=== PATIENT | male | born 1985 | race Caucasian/White ===

== ENCOUNTER 2017-09-02 02:58 | Emergency (ER) | payer MEDICARE, OTHER ==
[2017-09-02 02:59] VITALS: BMI 30.2
[2017-09-02 03:05] VITALS: BP 140/73; PULSE 89; RESP 17; TEMP 98.3; O2SAT 98
--- NOTE | 2017-09-02 03:19 | ED PDOC ---
HPI: Psych/Substance Abuse Time Seen by Provider: 09/02/17 03:08 Chief Complaint (Nursing): Psychiatric Evaluation Chief Complaint (Provider): crisis eval History Per: EMS Additional Complaint(s): 32 y/o male history of bipolar, schizophrenia brought in by EMS for crisis evaluation. As per EMS, parents called stating that patient has been noncompliant with psych medication and has not slept in 4 days. Patient with flight of ideas but redirectable. Denies suicidal/homicidal ideations. Past Medical History Reviewed: Historical Data, Nursing Documentation, Vital Signs Vital Signs: Last Vital Signs Temp 98.3 F 09/02/17 03:01 Pulse 89 09/02/17 03:01 Resp 17 09/02/17 03:01 BP 140/73 09/02/17 03:01 Pulse Ox 98 09/02/17 03:01 - Medical History PMH: Anxiety, Bipolar Disorder, Paranoia, Schizophrenia Denies: Diabetes, Hepatitis, HIV, HTN, Seizures, Sexually Transmitted Disease - Family History Family History: States: Unknown Family Hx - Immunization History Hx Tetanus Toxoid Vaccination: No (UNSURE) Hx Influenza Vaccination: No Hx Pneumococcal Vaccination: No - Home Medications Home Medications: Ambulatory Orders Medication Instructions Recorded clonazePAM [Klonopin] 1 mg PO BID #0 tab 02/02/14 risperiDONE [RisperDAL Tab] 1 mg PO DAILY #30 tab 02/02/14 traZODone [Desyrel] 50 mg PO HS #0 tab 02/02/14 Ambien 5 mg PO HS 03/15/14 Klonopin 03/15/14 - Allergies Allergies/Adverse Reactions: Allergies Allergy/AdvReac Type Severity Reaction Status Date / Time No Known Allergies Allergy Verified 05/01/14 17:25 Review of Systems ROS Statement: Except As Marked, All Systems Reviewed And Found Negative Psych: Positive for: Psychosis Physical Exam - Reviewed Nursing Documentation Reviewed: Yes Vital Signs Reviewed: Yes - Physical Exam Appears: Positive for: Well, Non-toxic, In Acute Distress (rambling, flight of ideas) Head Exam: Positive for: ATRAUMATIC, NORMAL INSPECTION, NORMOCEPHALIC Skin: Positive for: Normal Color Eye Exam: Positive for: Normal appearance ENT: Positive for: Normal ENT Inspection Cardiovascular/Chest: Positive for: Regular Rate, Rhythm Respiratory: Positive for: Normal Breath Sounds Gastrointestinal/Abdominal: Positive for: Normal Exam Back: Positive for: Normal Inspection Extremity: Positive for: Normal ROM Neurologic/Psych: Positive for: Alert, Oriented - Laboratory Results Result Diagrams: 09/02/17 03:38 09/02/17 03:38 - ECG O2 Sat by Pulse Oximetry: 98 - Progress ED Course And Treament: labs, urine, crisis eval Patient with elevated LFTs, states he drinks "almost daily". Advised to follow up PMD. Patient was evaluated by quill worker and cleared for discharge as per Dr. Espinosa. Disposition - Clinical Impression Clinical Impression: Schizophrenia, Elevated liver function tests - Patient ED Disposition Is Patient to be Admitted: No Counseled Patient/Family Regarding: Studies Performed, Diagnosis, Need For Followup - Disposition Disposition: Routine/Home Disposition Time: 04:52 Condition: STABLE Additional Instructions: Follow up with your primary doctor in 2-3 days. Follow up with your psychiatrist in 2-3 days. Return to ED for worsening/concerning symptoms. Instructions: Schizophrenia (DC)
[2017-09-02 03:48] LABS: BASO # 0.1 K/uL (0.0-0.2); EOS # 0.6 K/uL (0.0-0.7); EOS % 6.6 % (0.0-4.0); HEMOGLOBIN 12.8 g/dL (12.0-18.0); LYMPH # 2.6 K/uL (1.0-4.3); LYMPH % 30.5 % (20.0-40.0); MEAN CELL VOLUME 88.4 fl (80.0-94.0); MEAN CORPUSCULAR HEMOGLOBIN 29.4 pg (27.0-31.0); MEAN CORPUSCULAR HGB CONC 33.3 g/dL (33.0-37.0); MEAN PLATELET VOLUME 9.2 fl (7.2-11.7); MONO # 0.8 K/uL (0.0-0.8); MONO % 9.3 % (0.0-10.0); NEUT # 4.4 K/uL (1.8-7.0); NEUT % 52.6 % (50.0-75.0); NRBC % 0.2 % (0.0-0.0); RBC 4.37 Mil/uL (4.40-5.90); RED CELL DISTRIBUTION WIDTH 12.4 % (11.5-14.5); WHITE BLOOD COUNT 8.4 K/uL (4.8-10.8)
[2017-09-02 03:57] LABS: ALB/GLOB RATIO 1.1 (1.0-2.1); ALBUMIN 3.8 g/dL (3.5-5.0); ALT/SGPT 205 U/L (21-72); AST/SGOT 296 U/L (17-59); BLOOD UREA NITROGEN 13 mg/dl (9-20); CALCIUM 9.2 mg/dL (8.4-10.2); GFR AFRICAN-AMERICAN > 60; GFR NON-AFRICAN AMERICAN > 60
[2017-09-02 03:59] LABS: URINE BILIRUBIN NEGATIVE (NEGATIVE); URINE BLOOD NEGATIVE (NEGATIVE); URINE CLARITY CLEAR (Clear); URINE COLOR YELLOW (YELLOW); URINE GLUCOSE (UA) NEG (Normal); URINE LEUKOCYTE ESTERASE NEG Leu/uL (Negative); URINE PROTEIN NEGATIVE (NEGATIVE); URINE UROBILINOGEN 0.2-1.0 mg/dL (0.2-1.0)
[2017-09-02 04:07] LABS: BARBITURATES, UR NEGATIVE (NEGATIVE); BENZODIAZEPINES, UR NEGATIVE (NEGATIVE); OPIATES, UR NEGATIVE (NEGATIVE); PHENCYCLIDINE, UR NEGATIVE (NEGATIVE)
[2017-09-02 04:40] LABS: ACETAMINOPHEN < 10.0 ug/ml (10.0-30.0); SALICYLATE < 1.0 mg/dL 1
== END 2017-09-02 05:02 | disposition home or self-care (01) ==
LOC: H.ER 02:58
DX: F20.9 Schizophrenia, unspecified (principal); R94.5 Abnormal results of liver function studies; F31.9 Bipolar disorder, unspecified; F41.9 Anxiety disorder, unspecified; Z91.19 Patient's noncompliance with other medical treatment and regimen
CPT/HCPCS: 80053; 81003; 82948; 85025; 99283; G0480

== ENCOUNTER 2017-09-04 03:18 | Inpatient (IN) | payer MEDICARE, MEDICAID ==
[2017-09-04 03:25] VITALS: BMI 33.4
[2017-09-04 04:38] LABS: BASO # 0.1 K/uL (0.0-0.2); BASO % 1.2 % (0.0-2.0); EOS # 0.4 K/uL (0.0-0.7); EOS % 5.1 % (0.0-4.0); LYMPH # 2.2 K/uL (1.0-4.3); MEAN CORPUSCULAR HEMOGLOBIN 29.4 pg (27.0-31.0); MEAN CORPUSCULAR HGB CONC 33.4 g/dL (33.0-37.0); MONO # 0.7 K/uL (0.0-0.8); MONO % 8.9 % (0.0-10.0); NEUT # 4.4 K/uL (1.8-7.0); NEUT % 56.8 % (50.0-75.0); RBC 4.44 Mil/uL (4.40-5.90); RED CELL DISTRIBUTION WIDTH 12.7 % (11.5-14.5); WHITE BLOOD COUNT 7.8 K/uL (4.8-10.8)
[2017-09-04 04:48] LABS: ACETAMINOPHEN < 10.0 ug/ml (10.0-30.0); SALICYLATE < 1.0 mg/dl
[2017-09-04 04:49] LABS: BLOOD UREA NITROGEN 13 mg/dl (9-20); CALCIUM 8.7 mg/dL (8.4-10.2); GFR AFRICAN-AMERICAN > 60; GFR NON-AFRICAN AMERICAN > 60; URINE BILIRUBIN NEGATIVE (NEGATIVE); URINE BLOOD NEGATIVE (NEGATIVE); URINE CLARITY CLEAR (Clear); URINE COLOR YELLOW (YELLOW); URINE GLUCOSE (UA) NEG (Normal); URINE LEUKOCYTE ESTERASE NEG Leu/uL (Negative); URINE PROTEIN NEGATIVE (NEGATIVE); URINE UROBILINOGEN 0.2-1.0 mg/dL (0.2-1.0)
--- NOTE | 2017-09-04 04:58 | ED PDOC ---
HPI: Psych/Substance Abuse Time Seen by Provider: 09/04/17 03:26 Chief Complaint (Nursing): Psychiatric Evaluation Chief Complaint (Provider): psychiatric evaluation ED Caveat: Other (mental illness ) History Per: Patient History/Exam Limitations: other (poor hisotrian) Onset/Duration Of Symptoms: Days (09/04/17) Current Symptoms Are (Timing): Still Present Associated Symptoms: denies: Suicidal Thoughts, Suicidal Plan Additional History Per: Family Additional Complaint(s): 32 year old male was brought in by EMS to the ED for psychiatric evaluation. Family called 911 because patient was behaving erratically. Patient has a flight of ideas and is a poor historian. States he occasionally feels homicidal. Denies suicidal ideation. PMD: Provider TBD Past Medical History Reviewed: Historical Data, Nursing Documentation, Vital Signs Vital Signs: Last Vital Signs Temp 98.2 F 09/04/17 03:25 Pulse 121 H 09/04/17 03:25 Resp 18 09/04/17 03:25 BP 139/96 H 09/04/17 03:25 Pulse Ox 98 09/04/17 03:25 - Medical History PMH: Anxiety, Bipolar Disorder, Paranoia, Schizophrenia Denies: Diabetes, Hepatitis, HIV, HTN, Seizures, Sexually Transmitted Disease - Family History Family History: States: Unknown Family Hx - Immunization History Hx Tetanus Toxoid Vaccination: No (UNSURE) Hx Influenza Vaccination: No Hx Pneumococcal Vaccination: No - Home Medications Home Medications: Ambulatory Orders Medication Instructions Recorded Benztropine [Cogentin] 1 mg PO BID 09/04/17 [place] Carbonate [[place] 300 mg PO BID 09/04/17 Carbonate 300MG] Lurasidone HCl [Latuda] 80 mg PO DAILY 09/04/17 Quetiapine Fumarate [Seroquel] 100 mg PO HS 09/04/17 clonazePAM [Klonopin] 1 mg PO QID 09/04/17 - Allergies Allergies/Adverse Reactions: Allergies Allergy/AdvReac Type Severity Reaction Status Date / Time No Known Allergies Allergy Verified 09/04/17 03:25 Review of Systems ROS Statement: Except As Marked, All Systems Reviewed And Found Negative Psych: Positive for: Other (occasionally feels homicidal). Negative for: Suicidal ideation Physical Exam - Reviewed Nursing Documentation Reviewed: Yes Vital Signs Reviewed: Yes - Physical Exam Appears: Positive for: Well, Non-toxic, No Acute Distress Head Exam: Positive for: ATRAUMATIC, NORMAL INSPECTION, NORMOCEPHALIC Skin: Positive for: Normal Color, Warm, Dry Eye Exam: Positive for: EOMI, Normal appearance, PERRL ENT: Positive for: Normal ENT Inspection Neck: Positive for: Normal, Painless ROM, Supple. Negative for: Decreased ROM, Limited ROM Cardiovascular/Chest: Positive for: Regular Rate, Rhythm. Negative for: Murmur Respiratory: Positive for: Normal Breath Sounds. Negative for: Decreased Breath Sounds, Accessory Muscle Use, Respiratory Distress Gastrointestinal/Abdominal: Positive for: Normal Exam, Bowel Sounds, Soft. Negative for: Tenderness, Guarding, Rebound Extremity: Positive for: Normal ROM. Negative for: Tenderness, Pedal Edema, Deformity Neurologic/Psych: Positive for: Alert, Oriented (x3), Other (rambling and has flight of ideas ) - Laboratory Results Result Diagrams: 09/04/17 04:33 09/04/17 04:33 - ECG O2 Sat by Pulse Oximetry: 98 (RA) Pulse Ox Interpretation: Normal Medical Decision Making Medical Decision Making: Time: 03:31 A/P: Decompensated with schizoaffective disorder. Meeting for admission with Dr. Valenzuela. --Acetaminophen --Alcohol serum --BMP --Drug screen --Salicylate --Crisis evaluation --CBC w/ differentials --1:1 Observations --Urinalysis --Reevaluation 0600 Patient is medically cleared for psychiatric admission. Scribe Attestation: Documented by Luis Miguel Palomo, acting as a scribe for Naun Boyle MD Provider Scribe Attestation: All medical record entries made by the Scribe were at my direction and personally dictated by me. I have reviewed the chart and agree that the record accurately reflects my personal performance of the history, physical exam, medical decision making, and the department course for this patient. I have also personally directed, reviewed, and agree with the discharge instructions and disposition. Disposition - Clinical Impression Clinical Impression: Schizoaffective disorder - Patient ED Disposition Is Patient to be Admitted: Yes - Disposition Disposition Time: 05:00 Condition: FAIR
[2017-09-04 05:03] LABS: BARBITURATES, UR NEGATIVE (NEGATIVE); BENZODIAZEPINES, UR NEGATIVE (NEGATIVE); OPIATES, UR NEGATIVE (NEGATIVE); PHENCYCLIDINE, UR NEGATIVE (NEGATIVE)
[2017-09-04 06:33] VITALS: O2SAT 98
[2017-09-04] MEDS ORDERED: Magnesium Hydroxide Susp 30 ml UD PO PRN (09:18)
[2017-09-04] MEDS ORDERED: DiphenhydrAMINE 50 mg/ml Inj IM PRN (09:18)
--- NOTE | 2017-09-04 10:11 | PCM.PSYCH ---
Initial Psychiatric Evaluation - Initial Psychiatric Evaluation Type of Admission: Voluntary Legal Status: Capacity Chief Complaint (in patient's own words): I DO NOT TAKE MEDICATIONS Patient's Reaction to Hospitalization: PT REQUESTING TO LEAVE History of Present Illness and Precipitating Events: pt is 32 ys old male with previous psychiatric diagnosis of schizoaffective disorder, pt was non compliant with medications or follow up, as per pt he also started to use cannabis to calm himself down, pt was noted by parents to gradually decompensate, became increasingly disorganized and paranoid, pacing all night, irritable angry, internally preoccupied and responding to internal stimuli, pt was also threaening to neighbours on the unit pt is irritable angry requesting to leave, refusing medications, internally preoccupied and observed responding to internal stimuli pt signed 48 hours notice requesting to be discharged collateral information from mother Giselle Tse parents, , stated pt is not compliant with meds and has been talking to himself and stating random tings to them. They stated pt continues to wander outside at night and feels he needs psych admission at this time. They stated pt does see Dr. Dobbs but stated he does not follow meds. Current Medications: Active Medications Generic Name Dose Route Start Last Admin Trade Name Freq PRN Reason Stop Dose Admin Acetaminophen 650 mg 09/04/17 09:19 Tylenol 325mg Tab PO Q4 PRN Pain, moderate (4-7) Diphenhydramine HCl 50 mg 09/04/17 09:18 Benadryl IM Q6 PRN Extrapyramidal S/S Unable PO Diphenhydramine HCl 50 mg 09/04/17 09:18 09/04/17 09:49 Benadryl PO 50 mg Q6 PRN Administration Extrapyramidal Symptoms Haloperidol 5 mg 09/04/17 09:18 09/04/17 09:49 Haldol PO 5 mg Q4 PRN Administration Agitation Haloperidol Lactate 5 mg 09/04/17 09:18 Haldol IM Q4 PRN Agitation, Unable to Take PO Lorazepam 2 mg 09/04/17 09:18 Ativan IM Q4 PRN Anxiety/Agitation,Unable PO Lorazepam 2 mg 09/04/17 09:18 09/04/17 09:49 Ativan PO 2 mg Q4 PRN Administration Anxiety/Agitation Magnesium Hydroxide 30 ml 09/04/17 09:18 Milk Of Magnesia PO HS PRN Constipation Past Psychiatric History - Past Psychiatric History Explanation of prior treatment: multiple inpatient hospitalizations, hx of non compliance, pt mentioned being in long term five years ago but would not elaborate on the reason History of ETOH/Drug Use: history of cannabis use Pertinent Medical Hx (Current Medical&Sleep Prob, Allergies): Allergies Allergy/AdvReac Type Severity Reaction Status Date / Time No Known Allergies Allergy Verified 09/04/17 03:25 Benztropine [Cogentin] 1 mg PO BID 09/04/17 [place] Carbonate [[place] Carbonate 300MG] 300 mg PO BID 09/04/17 Lurasidone HCl [Latuda] 80 mg PO DAILY 09/04/17 Quetiapine Fumarate [Seroquel] 100 mg PO HS 09/04/17 clonazePAM [Klonopin] 1 mg PO QID 09/04/17 Mental Status Examination - Personal Presentation Personal Presentation: Looks older than stated age Additional comments: uncooperative, guarded irritable - Affect Affect: Constricted - Motor Activity Motor Activity: Psychomotor Agitation - Reliability in Providing Information Reliability in Providing Information: Poor, due to alteration in thoughts, Poor , due to altered mood - Speech Speech: Disorganized - Mood Mood: Anxious - Formal Thought Process Formal Thought Process: Hallucinations, Delusions, Paranoia, Loosening of associations, Circumstantial Additional comments: pt appears responding to internal stimuli - Obsessions/Compulsions Obsessions: No Compulsions: No - Cognitive Functions Orientation: Person, Place Attention/Concentration: Easily distracted Judgement: Imparied, as evidence by: Poor judgement, Imparied, as evidence by: Lack of insight into illness - Strength & Assets Inventory Strength & Assets Inventory: Family support - Limitations Additional comments: poor compliance DSM 5 DX - DSM 5 DSM 5 Diagnosis: schizoaffective disorder bipolar - Recommended/Plan of Treatment Treatment Recommendations and Plan of Treatment: risperidone 2mg bid depakote 500mg bid pt at current mental status irritable paranoid disorganized psychotic refusing medications requesting to leave signed 48hiours notice will refer pt for screening for involuntary admission as pt require continuation of treatment for stabilization
[2017-09-04 10:57] LABS: HDL CHOLESTEROL 38 MG/DL (30-70)
[2017-09-04] MEDS ORDERED: Divalproex 500 mg DR(BID formulation) PO STA (11:01)
[2017-09-04] MEDS ORDERED: Risperidone M TAB 2 MG PO STA (11:03)
[2017-09-04 11:08] LABS: LDL CHOLESTEROL 70 mg/dL (0-129)
--- NOTE | 2017-09-04 11:51 | PCM.BM ---
<Tha Fernandes M - Last Filed: 09/04/17 11:53> Treatment Plan Problems - Problems identified on initial assessmt delusions Date Initiated: 09/04/17 Time Initiated: 11:50 Assessment reference: NA Status: Active Priority: 1 Thought Process Date Initiated: 09/04/17 Time Initiated: 11:54 Assessment reference: NA Status: Active Priority: 2 Treatment assets and liabiliti Patient Assests: self-reliant, ADL independent, physically healthy, good support system Patient Liabilities: financial problems, imparied memory, other - Milieu Protocol Maintain good personal hygiene: daily Encourage regular showers, daily Remind patient to perform daily oral care, daily Assist patient to perform ADL's Conduct patient checks and document Observation sheet: Q15 minutes Maintain personal safety: every shift Educate patient to report safety concerns to staff, every shift Monitor environment for contraband/sharps Medication safety: Monitor for expected outcome, potential side effects: daily, Assess barriers to learning: daily, Assess readiness for medication education: daily Milieu Narrative: risperidone 2mg bid depakote 500mg bid pt at current mental status irritable paranoid disorganized psychotic refusing medications requesting to leave signed 48hiours notice will refer pt for screening for involuntary admission as pt require continuation of treatment for stabilization Discharge/Continuing Care - Treatment Team Participation Patient/Family/SO Statement: risperidone 2mg bid depakote 500mg bid pt at current mental status irritable paranoid disorganized psychotic refusing medications requesting to leave signed 48hiours notice will refer pt for screening for involuntary admission as pt require continuation of treatment for stabilization <Dylon Woo J - Last Filed: 09/06/17 13:31> Family Contact Family involvement: Family/SO is involved Family contact: Patient agrees to contact, Family has been contacted by patient , Telephone contact initiated by staff Family contact name: Jerry Fowler (Mother) Family contacted how many times per week?: 3 Family contact comment: Maintenance Worker [employer] attempted to contact pt's mother, Jerry Alejo ([phone]), for collateral and to update her on pt's condition. Phone rang for over two minutes and no answering machine initiated. Maintenance Worker [employer] will endorse to LORIE Ayoub to attempt again on 09/07. - Goals for Treatment Patient goals for treatment: Pt is too disorganized to formulate goals. Pt is agreeable to stay for further stabilization, but believes he is already stable enough to return home. Discharge/Continuing Care - Education Needs Education Needs: Patient Medication, Patient Diagnosis/Disease Process, Patient Coping Skills, Patient Community resources, Patient Aftercare Safety Plan - Discharge Discharge Criteria: Tolerates medication w/o severe side effects, Free of paranoid thoughts, Free of agitation, Ability to care for self, Reduction of target symptoms Discharge to:: Home, With Family - Treatment Team Participation Discussed with Family/SO: No <Kathryn Cueva - Last Filed: 09/09/17 08:18> - Diagnosis (1) Schizoaffective disorder Status: Acute Interventions: Medication management, Individual and group therapy, Psychoeducation 09/09/17 08:18
[2017-09-04] MEDS: Divalproex 500 mg DR(BID formulation) PO SCH (17:46)
[2017-09-04] MEDS: Risperidone M TAB 2 MG PO SCH (21:05)
[2017-09-05 07:15] LABS: BASO # 0.1 K/uL (0.0-0.2); BASO % 1.3 % (0.0-2.0); EOS # 0.4 K/uL (0.0-0.7); EOS % 6.7 % (0.0-4.0); HEMOGLOBIN 14.4 g/dL (12.0-18.0); LYMPH # 1.6 K/uL (1.0-4.3); LYMPH % 24.2 % (20.0-40.0); MEAN CELL VOLUME 89.4 fl (80.0-94.0); MEAN CORPUSCULAR HEMOGLOBIN 29.3 pg (27.0-31.0); MEAN CORPUSCULAR HGB CONC 32.8 g/dL (33.0-37.0); MONO # 0.5 K/uL (0.0-0.8); NEUT % 60.8 % (50.0-75.0); NRBC % 0.5 % (0.0-0.0); RBC 4.91 Mil/uL (4.40-5.90); RED CELL DISTRIBUTION WIDTH 12.9 % (11.5-14.5); WHITE BLOOD COUNT 6.5 K/uL (4.8-10.8)
[2017-09-05 07:34] LABS: LDL CHOLESTEROL 70 mg/dL (0-129)
[2017-09-05 07:37] LABS: T4 8.25 ug/dl (5.5-11.0)
[2017-09-05 08:04] LABS: ALBUMIN 3.5 g/dL (3.5-5.0); ALT/SGPT 111 U/L (21-72); AST/SGOT 67 U/L (17-59); BLOOD UREA NITROGEN 12 mg/dl (9-20); CALCIUM 8.4 mg/dL (8.4-10.2); GFR AFRICAN-AMERICAN > 60; GFR NON-AFRICAN AMERICAN > 60; HDL CHOLESTEROL 41 MG/DL (30-70)
[2017-09-05] MEDS: Divalproex 500 mg DR(BID formulation) PO SCH ×2 (09:44→18:50)
[2017-09-05] MEDS: Risperidone M TAB 2 MG PO SCH ×2 (09:44→21:05)
--- NOTE | 2017-09-05 12:03 | CP.PCM.CON ---
History of Present Illness - History of Present Illness History of Present Illness: Reason for Consult: per hospital protocol HPI: 32 M PMH Schizoaffective disorder, admitted to psych for irrational behavior. Patient is calm at this time, has no complaints. HD stable, NAD. ROS: per HPI all other systems reviewed and negative by me Past Patient History - Past Social History Smoking Status: Heavy Smoker > 10 Cigarettes Daily - CARDIAC Hx Hypertension: No - PULMONARY Hx Tuberculosis: No - NEUROLOGICAL Hx Seizures: No - HEENT Hx HEENT Problems: No - RENAL Hx Chronic Kidney Disease: No - ENDOCRINE/METABOLIC Hx Endocrine Disorders: No - HEMATOLOGICAL/ONCOLOGICAL Hx Blood Disorders: No Hx Human Immunodeficiency Virus (HIV): No - INTEGUMENTARY Hx Dermatological Problems: No - MUSCULOSKELETAL/RHEUMATOLOGICAL Hx Musculoskeletal Disorders: No - GASTROINTESTINAL Hx Gastrointestinal Disorders: No - GENITOURINARY/GYNECOLOGICAL Hx Genitourinary Disorders: No Hx Sexually Transmitted Disorders: No - PSYCHIATRIC Hx Anxiety: Yes Hx Bipolar Disorder: Yes Hx Schizophrenia: Yes Hx Substance Use: Yes - SURGICAL HISTORY Hx Surgeries: No - ANESTHESIA Hx Anesthesia: No Meds Allergies/Adverse Reactions: Allergies Allergy/AdvReac Type Severity Reaction Status Date / Time No Known Allergies Allergy Verified 09/04/17 03:25 - Medications Medications: Current Medications Acetaminophen (Tylenol 325mg Tab) 650 mg PO Q4 PRN PRN Reason: Pain, moderate (4-7) Benztropine Mesylate (Cogentin) 0.5 mg PO HS [facility] Last Admin: 09/04/17 21:05 Dose: 0.5 mg Diphenhydramine HCl (Benadryl) 50 mg IM Q6 PRN PRN Reason: Extrapyramidal S/S Unable PO Diphenhydramine HCl (Benadryl) 50 mg PO Q6 PRN PRN Reason: Extrapyramidal Symptoms Last Admin: 09/04/17 20:33 Dose: 50 mg Divalproex Sodium (Depakote Dr(*Bid*)) 500 mg PO BID [facility] Last Admin: 09/05/17 09:44 Dose: 500 mg Haloperidol (Haldol) 5 mg PO Q4 PRN PRN Reason: Agitation Last Admin: 09/04/17 09:49 Dose: 5 mg Haloperidol Lactate (Haldol) 5 mg IM Q4 PRN PRN Reason: Agitation, Unable to Take PO Lorazepam (Ativan) 2 mg IM Q4 PRN PRN Reason: Anxiety/Agitation,Unable PO Lorazepam (Ativan) 2 mg PO Q4 PRN PRN Reason: Anxiety/Agitation Last Admin: 09/04/17 20:33 Dose: 2 mg Magnesium Hydroxide (Milk Of Magnesia) 30 ml PO HS PRN PRN Reason: Constipation Risperidone (Risperdal M-Tab) 2 mg PO HS [facility] Last Admin: 09/04/17 21:05 Dose: 2 mg Risperidone (Risperdal M-Tab) 2 mg PO DAILY [facility] Last Admin: 09/05/17 09:44 Dose: 2 mg Results - Vital Signs Recent Vital Signs: Last Vital Signs Temp 97.5 F L 09/05/17 09:00 Pulse 93 H 09/05/17 09:00 Resp 16 09/05/17 09:00 BP 150/88 09/05/17 09:00 Pulse Ox 98 09/04/17 06:33 - Labs Result Diagrams: 09/05/17 06:30 09/05/17 06:30 Labs: Laboratory Results - last 24 hr 09/04/17 09/05/17 09/05/17 10:19 06:30 06:30 WBC 6.5 RBC 4.91 Hgb 14.4 Hct 43.9 MCV 89.4 MCH 29.3 MCHC 32.8 L RDW 12.9 Plt Count 227 MPV 9.0 Neut % (Auto) 60.8 Lymph % (Auto) 24.2 [place] % (Auto) 7.0 Eos % (Auto) 6.7 H Baso % (Auto) 1.3 Neut # (Auto) 4.0 Lymph # (Auto) 1.6 [place] # (Auto) 0.5 Eos # (Auto) 0.4 Baso # (Auto) 0.1 Sodium 143 Potassium 4.0 Chloride 103 Carbon Dioxide 27 Anion Gap 17 BUN 12 Creatinine 0.9 Est GFR ( Amer) > 60 Est GFR (Non-Af Amer) > 60 Random Glucose 102 Hemoglobin A1c 4.6 Calcium 8.4 Total Bilirubin 0.3 AST 67 H D ALT 111 H D Alkaline Phosphatase 46 Total Protein 6.9 Albumin 3.5 Globulin 3.4 Albumin/Globulin Ratio 1.0 Triglycerides 117 D Cholesterol 135 LDL Cholesterol Direct 70 HDL Cholesterol 41 Thyroxine (T4) 8.25 TSH 3rd Generation 0.76 Assessment & Plan - Assessment and Plan (Free Text) Plan: 32 M PMH Schizoaffective disorder, admitted to psych for irrational behavior. Patient is calm at this time, has no complaints. HD stable, NAD. Schizoaffective Disorder management per psych
--- NOTE | 2017-09-05 13:56 | PCM.PYCHPN ---
Psychiatric Progress Note - Psychiatric Progress Note Patient seen today, length of contact: pr seen and evaluated Patient Chief Complaint: pt is still having disorganized and labile thinking and still irritible and remains with poor insight and need further stabilization. Mental Status Examination - Cognitive Function Orientation: Person, Place Attention: Poor Concentration: Poor Association: WNL Fund of Knowledge: WNL - Mood Mood: Anxious - Affect Affect: Constricted - Formal Thought Process Formal Thought Process: Hallucinations, Delusions, Paranoia, Loosening of associations, Circumstantial - Homicidal Ideation Homicidal Ideation: No Goal/Treatment Plan - Goal/Treatment Plan Progress Toward Problem(s) and Goals/Treatment Plan: will check the valproic acid level in am and further stabilize the pt by titrating the dose and engage pt in therapy and groups.
[2017-09-06] MEDS: Risperidone M TAB 2 MG PO SCH ×2 (08:38→21:02)
[2017-09-06] MEDS: Divalproex 500 mg DR(BID formulation) PO SCH ×2 (08:38→17:47)
[2017-09-06] MEDS ORDERED: Influenza Vaccine 18yr & older 0.5 ML/45 MCG SYR IM ONE (11:35)
[2017-09-07] MEDS: Risperidone M TAB 2 MG PO SCH ×2 (08:21→21:10)
[2017-09-07] MEDS: Divalproex 500 mg DR(BID formulation) PO SCH ×2 (08:21→17:25)
--- NOTE | 2017-09-07 21:22 | PCM.PYCHPN ---
Psychiatric Progress Note - Psychiatric Progress Note Patient seen today, length of contact: chart reviewed case discussed wt team pt seen Patient Chief Complaint: pt was admitted from [facility] after being brought to by family after a change in behavior. pt with hx of schizoaffective disorder. [place] [facility] attending opd/iop. 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 reports concern about missing work initally talking about 48 hour notice but did not want to submit, able to process remaining to stay in hospital to try to get help so can go back to work. upon presentation pt's vpa level was sub subtherapeuitc. Problems Identified/Issues Discussed: alteration in cognition alteration in mood Medical Problems: per chart Diagnostic Results: per psychiatry per medicine per nursing per social work per recreational therapy DSM 5 Symptoms Update: paranoia, ?vacillations in mod Medication Change: No Medical Record Reviewed: Yes Consults ordered or reviewed: pt being followed by hospitalist Mental Status Examination - Cognitive Function Orientation: Person, Place Attention: Poor Concentration: Poor Association: WNL Fund of Knowledge: WNL - Mood Mood: Anxious - Affect Affect: Constricted - Formal Thought Process Formal Thought Process: Hallucinations, Delusions, Paranoia, Loosening of associations, Circumstantial - Homicidal Ideation Homicidal Ideation: No Goal/Treatment Plan - Goal/Treatment Plan Progress Toward Problem(s) and Goals/Treatment Plan: inpt adm/milieu therapy vital signs/clinical observation per protocol and per clinical status team may want to consider long acting injectable-pt to consider discharge planning in progress Estimated Date of D/C: 09/10/17 - Smoking Cessation Smoking Cessation Initiated: No Reason for not providing: pt defers
[2017-09-08] MEDS: Divalproex 500 mg DR(BID formulation) PO SCH ×2 (08:37→16:44)
[2017-09-08] MEDS: Risperidone M TAB 2 MG PO SCH ×2 (08:37→21:03)
[2017-09-08 15:36] VITALS: PULSE 90
--- NOTE | 2017-09-08 18:19 | PCM.PYCHPN ---
Psychiatric Progress Note - Psychiatric Progress Note Patient seen today, length of contact: chart reviewed case discussed wtih team pt seen Patient Chief Complaint: pt seen ambulating in milieu with peers, smiling at times. staff report pt has been adherent with rx.. pt with hx of non adherence defers IM injection/long acting. denies side effects from current regimen p Problems Identified/Issues Discussed: alteration in cognition alteration in mood Medical Problems: per chart Diagnostic Results: per psychiatry per medicine per nursing per social work per recreational therapy DSM 5 Symptoms Update: alteration in mood alteration in thought process Medication Change: No Medical Record Reviewed: Yes Consults ordered or reviewed: pt being followed by hospitalist Mental Status Examination - Cognitive Function Orientation: Person, Place Attention: WNL Concentration: WNL Association: WNL Fund of Knowledge: [facility] Decription of patient's judgement and insights: impaired - Mood Mood: Neutral - Affect Affect: Broad - Speech Speech: Soft - Formal Thought Process Formal Thought Process: Delusions, Paranoia, Circumstantial - Suicidal Ideation Suicidal Ideation: No - Homicidal Ideation Homicidal Ideation: No Goal/Treatment Plan - Goal/Treatment Plan Progress Toward Problem(s) and Goals/Treatment Plan: inpt adm/milieu therapy vital signs/clinical observation per protocol and per clinical status team may want to consider long acting injectable-pt defers long acting antipsychotics pt to consider discharge planning in progress Estimated Date of D/C: 09/09/17 - Smoking Cessation Smoking Cessation Initiated: No Reason for not providing: pt defers
[2017-09-09 05:50] VITALS: BP 119/71; RESP 18; TEMP 97.5
[2017-09-09] MEDS: Divalproex 500 mg DR(BID formulation) PO SCH (08:17)
[2017-09-09] MEDS: Risperidone M TAB 2 MG PO SCH (08:18)
--- NOTE | 2017-09-09 08:22 | PCM.PYCHDC ---
Mental Status Examination - Mental Status Examination Orientation: Person, Place, Situation, Time Memory: Intact Mood: Neutral Affect: Broad Speech: Appropriate Attention: WNL Concentration: WNL Association: WNL Fund of Knowledge: WNL Formal Thought Process: No Impairment Description of patient's judgement and insight: Good I/J Psychotic Thoughts and Behaviors: No AH/VH/paranoia/delusions Suicidal Ideation: No Current Homicidal Ideation?: No Discharge Summary - Discharge Note Reason for Hospitalization: As per initial HPI note: "pt is 32 ys old male with previous psychiatric diagnosis of schizoaffective disorder, pt was non compliant with medications or follow up, as per pt he also started to use cannabis to calm himself down, pt was noted by parents to gradually decompensate, became increasingly disorganized and paranoid, pacing all night, irritable angry, internally preoccupied and responding to internal stimuli, pt was also threaening to neighbours on the unit pt is irritable angry requesting to leave, refusing medications, internally preoccupied and observed responding to internal stimuli collateral information from mother Giselle Tse parents, , stated pt is not compliant with meds and has been talking to himself and stating random tings to them. They stated pt continues to wander outside at night and feels he needs psych admission at this time. They stated pt does see Dr. Dobbs but stated he does not follow meds." Consultations:: List each consultation separately and include: 1. Reason for request. 2. Findings. 3. Follow-up Consultations: Medicine consult Summary of Hospital Course include:: 1. Description of specific treatment plan utilized for patients during their course of treatmen. 2. Summarize the time- course for resolution of acute symptoms and/or regressed behaviors. 3. Describe issues identified and worked on during hospitalization. 4. Describe medication utilized. 5. Describe medical problems identified and treated. 6. Reassessment of suicide risk Summary of Hospital Course: Patient was admitted to the psychiatry unit. Individual and group therapy were provided. Patient was stabilized on Depakote 500 mg PO BID, Risperdal 2 mg PO Q12 and Cogentin 0.5 mg PO HS. He denies current manic or depressive symptoms. He no longer has auditory hallucinations. NO AH/VH/SI/HI. He is psychiatrically stable for discharge with outpatient follow-up. - Diagnosis (1) Schizoaffective disorder Current Visit: Yes Status: Chronic - Final Diagnosis (DSM 5) Condition upon Discharge: STABLE DSM 5: Schizoaffective Disorder Disposition: HOME/ ROUTINE Follow-up Treatment Plan: Discharge w/ outpatient follow-up Prescriptions/Medication Reconciliation: Benztropine [Cogentin] 0.5 mg PO HS #30 tab Divalproex [Depakote DR(*BID*)] 500 mg PO BID #60 tcp Nicotine 14 mg/24 hr [Nicoderm CQ] 1 patch TD DAILY #30 patch risperiDONE [RisperDAL Tab] 2 mg PO Q12 #60 tab - Smoking Cessation Smoking Cessation Medication prescribed: Yes - Antipsychotic Medications Pt discharged on 2 or more routine antipsychotic medications: No
== END 2017-09-09 09:40 | disposition home or self-care (01) | DRG 885 ==
LOC: H.ER 03:18 → H.ERHOLD 04:15 → H.PSYCH 06:45 → H.STEP 09-06 19:57
PROVIDERS: ADMIT Psychiatry & Neurology Psychiatry; ATTEND Psychiatry & Neurology Psychiatry
PROC: GZHZZZZ Group Psychotherapy (ICD-10-PCS; 2017-09-04)
PROC: 3E0234Z Introduction of Serum, Toxoid and Vaccine into Muscle, Percutaneous Approach (ICD-10-PCS; principal; 2017-09-06)
DX: F25.9 Schizoaffective disorder, unspecified (principal); Z91.14 Patient's other noncompliance with medication regimen; F12.90 Cannabis use, unspecified, uncomplicated; F17.210 Nicotine dependence, cigarettes, uncomplicated; Z91.19 Patient's noncompliance with other medical treatment and regimen; Z23 Encounter for immunization

== ENCOUNTER 2018-03-16 20:22 | Emergency (ER) | payer MEDICARE, OTHER ==
[2018-03-16 20:23] VITALS: BMI 33.4
[2018-03-16 20:39] VITALS: BP 122/72; PULSE 73; RESP 18; TEMP 98.8; O2SAT 98
--- NOTE | 2018-03-16 20:39 | ED PDOC ---
HPI: Psych/Substance Abuse Time Seen by Provider: 03/16/18 20:36 Chief Complaint (Nursing): Alcohol Ingestion Chief Complaint (Provider): etoh History Per: Patient, EMS Additional Complaint(s): 32-year-old male presents via ambulance for evaluation of alcohol intoxication. Patient had a drink at home and then had an argument with his mother. Mother called the police and EMS was called to seen for patient to be brought to ED. Patient is not under arrest and police did not accompany patient to ED. He denies suicidal or homicidal ideation. He denies any drug use. He offers no medical or psychiatric complaints. PMD: none Past Medical History Reviewed: Historical Data, Nursing Documentation, Vital Signs - Medical History PMH: Anxiety, Bipolar Disorder, Paranoia, Schizophrenia - Family History Family History: States: No Known Family Hx - Living Arrangements Living Arrangements: With Family - Social History Current smoker - smoking cessation education provided: No Alcohol: Social Drugs: Denies - Home Medications Home Medications: Ambulatory Orders Medication Instructions Recorded Acetaminophen with Codeine 1 each PO .Q4-6H #20 tablet 03/12/18 [Tylenol with Codeine #3 Tablet] Cephalexin [cephalexin] 500 mg PO Q6 #28 cap 03/12/18 Sulfamethoxazole/Trimethoprim 1 tab PO BID #14 tab 03/12/18 [Bactrim DS 800 mg-160 mg] - Allergies Allergies/Adverse Reactions: Allergies Allergy/AdvReac Type Severity Reaction Status Date / Time No Known Allergies Allergy Verified 03/16/18 20:29 Review of Systems ROS Statement: Except As Marked, All Systems Reviewed And Found Negative Psych: Positive for: Other (etoh) Physical Exam - Reviewed Nursing Documentation Reviewed: Yes Vital Signs Reviewed: Yes - Physical Exam Appears: Positive for: Well, Non-toxic, No Acute Distress Skin: Positive for: Normal Color. Negative for: Rash Eye Exam: Positive for: Normal appearance Cardiovascular/Chest: Positive for: Regular Rate, Rhythm Respiratory: Positive for: Normal Breath Sounds. Negative for: Wheezing, Respiratory Distress Extremity: Positive for: Normal ROM Neurologic/Psych: Positive for: Alert, Oriented, Gait (steady) - ECG O2 Sat by Pulse Oximetry: 98 Pulse Ox Interpretation: Normal Medical Decision Making Medical Decision Making: Patient is awake and alert upon arrival. He is ambulatory with steady gait. Patient offers no acute psychiatric or medical complaints. Patient is stable for discharge. Disposition - Clinical Impression Clinical Impression: Alcohol use - Patient ED Disposition Is Patient to be Admitted: No Counseled Patient/Family Regarding: Diagnosis, Need For Followup - Disposition Referrals: [facility] [Outside] Disposition: Routine/Home Disposition Time: 20:46 Condition: STABLE Additional Instructions: Follow up as needed with primary care doctor Instructions: Alcohol Use - When Is Drinking a Problem? Forms: [facility] (Spanish)
== END 2018-03-16 21:34 | disposition home or self-care (01) ==
LOC: H.ER 20:22
DX: F10.10 Alcohol abuse, uncomplicated (principal)